=== PATIENT | female | born 1990 | race Caucasian/White ===

== ENCOUNTER 2016-10-07 17:21 | Emergency (ER) | payer SELFPAY ==
[~2016-10-07 17:21] MED LIST: NO HOME MEDICATIONS; NORCO 325 MG-51 TAB PO; PREDNISONE20 M1 PO
[2016-10-07] MEDS ORDERED: ONDANSETRON HYDR4 M1 PO (20:32)
[2016-10-07 20:49] VITALS: BP 116/57
== END 2016-10-07 20:49 | disposition home or self-care (01) ==
LOC: ED 17:21
DX: A08.39 Other viral enteritis (principal); E86.9 Volume depletion, unspecified
CPT/HCPCS: J2405; J7030

== ENCOUNTER 2019-09-15 21:06 | Emergency (ER) | payer SELFPAY ==
[~2019-09-15] VITALS: Ht 167.6 cm; Wt 65.0 kg
[~2019-09-15 21:06] MED LIST changes: +ONDANSETRON HYDR4 M1 PO; +ZOFRAN4 M2 PO
[2019-09-15 22:16] LABS: HEMOGLOBIN 14.9 g/dL (12.5-16.0); MEAN CELL VOLUME 88 fl (78-100); MEAN CORPUSCULAR HEMOGLOBIN 30 pg (27-31); MEAN CORPUSCULAR HGB CONC 34 g/dL (33-37); PLATELET COUNT 221 K/mm3 (130-400); RED BLOOD COUNT 4.98 M/mm3 (4.10-5.30); RED CELL DISTRIBUTION WIDTH 12.6 % (11.5-14.5); WHITE BLOOD COUNT 15.8 K/mm3 (4.8-10.8)
[2019-09-15 22:24] LABS: ALBUMIN 4.9 g/dL (3.5-5.0); POTASSIUM 3.7 mmol/L (3.5-5.1)
[2019-09-15 22:26] LABS: CALCIUM 9.8 mg/dL (8.3-10.5)
[2019-09-15 22:27] LABS: TOTAL PROTEIN 7.7 g/dL (6.4-8.3)
[2019-09-15 22:29] LABS: TOTAL BILIRUBIN 0.8 mg/dL (0.2-1.2)
[2019-09-15 22:30] LABS: LYMPHOCYTE 2 % (20-51); MONOCYTE 1 % (3-10); NEUTROPHILS 97 % (42-75)
[2019-09-15] MEDS ORDERED: ZOFRAN ODT4 MG PO (22:57)
[2019-09-15 23:17] VITALS: BP 113/46
== END 2019-09-15 23:17 | disposition home or self-care (01) ==
LOC: ED 21:06
PROVIDERS: Family Medicine
DX: R11.2 Nausea with vomiting, unspecified (principal); F17.210 Nicotine dependence, cigarettes, uncomplicated; Z90.49 Acquired absence of other specified parts of digestive tract
CPT/HCPCS: J7030